=== PATIENT | female | born 1965 | race Caucasian/White ===

== ENCOUNTER 2022-11-12 10:12 | Outpatient (OUT) | payer BC, SELFPAY ==
[2022-11-12 10:19] VITALS: PULSE 81; RESP 16; O2SAT 96
[2022-11-12] MEDS: ALBUTEROL SULFATE 2.5 MG/3 ML VIAL NEB IH (10:19)
--- NOTE | 2022-11-12 10:23 | MM_ITS ---
Patient: BRIANNA MADRID Exam Date: 11/12/2022 : 1965 Gender:F Ordering : DR Khris Rod D.O. Admission #: [id number] Family : Order #: [id number] CLICK HERE TO VIEW EXAM kRADIOLOGY REPORT PROCEDURE: MM TOMOSYNTHESIS SCREENING BI COMPARISON: MG MAMM SCREEN RAQUEL W CAD, 07/04/2020. MG MAMM SCREEN 3D RAQUEL CAD, 07/28/2021. INDICATIONS: Screening mammogram Z12.31 Calculator Name NCI Breast Cancer Risk Assessment Tool 5 Year Breast Cancer Risk 1.30% Lifetime Breast Cancer Risk 8.00% Personal Breast Cancer No Personal Ovarian Cancer No Treatments None Family Cancers None LOCATION: [facility] BREAST COMPOSITION: Extremely dense, which lowers the sensitivity of mammography. FINDINGS: DIAGNOSTIC CATEGORY 1--NEGATIVE. NO CHANGE FROM COMPARISON ASSESSMENT. Scattered benign-appearing lymph nodes are present. RIGHT BREAST: No significant suspicious finding. LEFT BREAST: No significant suspicious finding. RECOMMENDATIONS: ROUTINE MAMMOGRAM AND CLINICAL EVALUATION IN 12 MONTHS. PLEASE NOTE: A NORMAL MAMMOGRAM DOES NOT EXCLUDE THE POSSIBILITY OF BREAST CANCER. A CLINICALLY SUSPICIOUS PALPABLE LUMP SHOULD BE BIOPSIED. Dictated by: Dat Marquis MD on 11/12/2022 at 13:17 Approved by: Dat Marquis MD on 11/12/2022 at 13:18
--- NOTE | 2022-11-12 10:25 | XR_ITS ---
[address] [address] Patient Name: BRIANNA MADRID MRN: [id number] date: 1965 Sex: F Assigned Patient Location: [facility] Current Patient Location: [facility] Accession/Order Number: [id number] Exam Date: 11/12/2022 10:42 Report Date: 11/12/2022 11:15 At the request of: ARTI PRADO Procedure: XR chest 2V EXAM: XR chest 2V HISTORY: Mild persistent asthma w/o complication J45.30 COMPARISON: None. TECHNIQUE: PA and lateral views of the chest. FINDINGS: The cardiomediastinal silhouette is normal. No focal consolidation is identified. There is no pneumothorax. No pleural effusion is noted. The osseous structures are intact. IMPRESSION: No acute cardiopulmonary process. Electronically authenticated by: NAS MORRISON Date: 11/12/2022 11:15
[2022-11-12 10:36] LABS: Basophils Absolute Auto 0.1 10^3/uL (0.0-0.1); Basophils Percent Auto 1.1 % (0.2-2.0); Eosinophils Absolute Auto 0.7 10^3/uL (0.0-0.7); Eosinophils Percent Auto 7.6 % (0.9-7.0); Hematocrit 44.7 % (36.0-48.0); Hemoglobin 15.1 g/dL (12.0-16.0); Immature Granulocytes Abs Auto 0.09 10^3/uL (0.00-0.03); Lymphocytes Absolute Auto 2.1 10^3/uL (1.2-3.8); Lymphocytes Percent Auto 23.4 % (20.5-60.0); Mean Corpuscular HGB Conc 33.8 g/dL (29.9-35.2); Mean Corpuscular Hemoglobin 32.3 pg (26.7-34.0); Mean Corpuscular Volume 95.5 fL (81.0-99.0); Monocytes Absolute Auto 0.5 10^3/uL (0.3-0.8); Monocytes Percent Auto 5.2 % (1.7-12.0); Neutrophils Absolute Auto 5.5 10^3/uL (1.4-6.5); Neutrophils Percent Auto 61.7 % (43.0-75.0); Platelet Count 256 10^3/uL (150-450); Red Blood Count 4.68 10^6/uL (4.20-5.40); Red Cell Distribution Width 12.2 % (11.0-15.0); White Blood Count 8.9 10^3/uL (4.0-11.0)
--- NOTE | 2022-11-12 10:57 | RT_ITS ---
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 The MVV is reduced. The increased airway resistance and decreased specific conductance indicate a central airway disease. The TLC, FRC and RV are increased indicating overinflation. Following administration of bronchodilators, there is an excellent response. The diffusing capacity is normal. Maldistribution of ventilation is indicated by the difference between the alveolar volume and the total lung capacity. Spirometry: FVC normal 99% FEV1 decreased 57% FEV1/FVC decreased 45 (actual) FEF 25-75 decreased 25% MVV decreased 48% Volumes: TLC increased 126% RV/TLC increased 128% Diffusion: Normal 89% Impression: Findings consistent with moderate obstructive airway disease with significant response to bronchodilators. Elevated TLC and RV/TLC consistent with hyperinflation. Normal diffusion capacity Electronically Signed On 11-13-2022 7:21:02 EDT by ARTI PRADO
[2022-11-12 11:45] LABS: Alanine Aminotransferase 25 U/L (14-59); Albumin Level 3.9 g/dL (3.4-5.0); Alkaline Phosphatase 110 U/L (46-116); Anion Gap 17.2; Aspartate Amino Transferase 26 U/L (15-37); BUN Creatinine Ratio 10.3; Bilirubin Total 0.4 mg/dL (0.2-1.0); Calcium 8.8 mg/dL (8.5-10.1); Carbon Dioxide 23.7 mmol/L (21.0-32.0); Chloride 102 mmol/L (98-107); Chol HDL Ratio 1.8; Cholesterol 227 mg/dL (<=200); Estimated GFR (African America >60 (>=60); Estimated GFR (Non-African Ame >60 (>=60); Globulin 3.8 g/dL; Glucose 77 mg/dL (74-106); HDL Cholesterol 123 mg/dL (40-60); Potassium 3.9 mmol/L (3.5-5.1); Sodium 139 mmol/L (136-145); Thyroid Stimulating Hormone 1.218 uIU/mL (0.358-3.740); Total Protein 7.7 g/dL (6.4-8.2); Triglycerides 67 mg/dL (<=150); VLDL CHOLESTEROL 13.4 mg/dL
[2022-11-12 13:16] LABS: Estimated Average Glucose 77 mg/dL; Glycohemoglobin A1C 4.3 % (4.5-6.2)
== END 2022-11-12 10:13 | disposition home or self-care (01) ==
LOC: RAD 10:12
PROVIDERS: PCP Internal Medicine; Visit Provider Internal Medicine
DX: Z00.00 Encounter for general adult medical examination without abnormal findings (principal); Z12.31 Encounter for screening mammogram for malignant neoplasm of breast; J45.30 Mild persistent asthma, uncomplicated
CPT/HCPCS: 36415; 71046; 77063; 77067; 80053; 80061; 83036; 84443; 85025; 94060; 94726; 94729

== ENCOUNTER 2023-03-26 14:29 | Outpatient (OUT) | payer BC, SELFPAY ==
--- NOTE | 2023-03-26 14:32 | CT_ITS ---
[address] [address] Patient Name: BRIANNA MADRID MRN: [id number] date: 1965 Sex: F Assigned Patient Location: CT Current Patient Location: CT Accession/Order Number: [id number] Exam Date: 03/26/2023 14:43 Report Date: 03/27/2023 07:25 At the request of: WHITNEY FOREMAN Procedure: CT chest wo con EXAMINATION: CT chest wo con HISTORY: Dyspnea On Exertion R06.09 COMPARISON: No relevant comparison available. TECHNIQUE: Multi-planar CT images were obtained without and/or with IV contrast as indicated by examination type. Axial, Coronal, and Sagittal images. Dose reduction techniques were achieved by using automated exposure control and/or adjustment of mA and/or kV according to patient size and/or use of iterative reconstruction technique. FINDINGS: LUNGS: Mild-moderate emphysematous changes predominantly involving the upper lung regions. No acute infiltrates or suspicious nodules. PLEURA: No mass, effusion, or pneumothorax. VASCULATURE: No abnormality. MANISHA: No mass or adenopathy. MEDIASTINUM: No mass or adenopathy. CARDIAC: No enlargement, pericardial thickening, or significant calcification. AORTA: No aneurysm or dissection. CHEST WALL: No mass or axillary adenopathy. BONES: No bone lesion or fracture. LIMITED ABDOMEN: Calcification within right hepatic dome, likely a benign granuloma. Limited images of the upper abdomen. OTHER: Negative. CT/CT chest wo con IMPRESSION: 1. No acute cardiopulmonary process. 2. Mild-moderate emphysematous changes. Electronically authenticated by: VALENCIA COREY Date: 03/27/2023 07:25
== END 2023-03-26 14:30 | disposition home or self-care (01) ==
LOC: CT 14:29
PROVIDERS: PCP Internal Medicine; Visit Provider Internal Medicine
DX: R06.09 Other forms of dyspnea (principal); R05.9 Cough, unspecified
CPT/HCPCS: 71250

== ENCOUNTER 2023-11-19 15:04 | Outpatient (OUT) | payer BC, SELFPAY ==
--- NOTE | 2023-11-19 15:25 | MM_ITS ---
Patient Name: BRIANNA MADRID MR#: [id number] : 1965 Exam Date: 11/19/2023 Ordering Doctor: DR Khris Rod D.O. RADIOLOGY REPORT PROCEDURE: MM TOMOSYNTHESIS SCREENING BI COMPARISON: MM TOMOSYNTHESIS SCREENING BI, 11/12/2022. MG MAMM SCREEN 3D RAQUEL CAD, 07/28/2021. MG MAMM SCREEN RAQUEL W CAD, 07/04/2020. MG MAMM RAQUEL SCRN W CAD DIG, 04/03/2013. INDICATIONS: Screening Calculator Name NCI Breast Cancer Risk Assessment Tool 5 Year Breast Cancer Risk 2.40% Lifetime Breast Cancer Risk 13.40% Personal Breast Cancer No Personal Ovarian Cancer No Treatments None Family Cancers Mother with breast cancer at age 70. LOCATION: [facility] BREAST COMPOSITION: The breasts are extremely dense, which lowers the sensitivity of mammography. FINDINGS: DIAGNOSTIC CATEGORY 1--NEGATIVE. RIGHT BREAST: No significant suspicious finding. No significant change has occurred. LEFT BREAST: No significant suspicious finding. No significant change has occurred. RECOMMENDATIONS: ROUTINE MAMMOGRAM AND CLINICAL EVALUATION IN 12 MONTHS. PLEASE NOTE: A NORMAL MAMMOGRAM DOES NOT EXCLUDE THE POSSIBILITY OF BREAST CANCER. A CLINICALLY SUSPICIOUS PALPABLE LUMP SHOULD BE BIOPSIED. Dictated by: Sandor Salazar M.D. on 11/20/2023 at 07:21 Approved by: Sandor Salazar M.D. on 11/20/2023 at 07:23
--- OUTSIDE RECORDS SUMMARY | 2023-11-19 15:28 | XMS_ITS ---
Patient Summarization (C-CDA 2.1 CCD) Created on: November 19, 2023 BRIANNA MADRID : 1965 Sex: Female Author Organization Sample organization Care Team Providers Care Residential Coordinator Name Role Phone DR KHRIS ROD Primary Care Unavailable BALL, DR CHI Admitting Unavailable BALL, DR CHI Attending Unavailable BALL, DR CHI Primary Care Unavailable SAMIR THOMAS Attending Unavailable ROSS, SAMIR EPI Consulting Unavailable ROSS, SAMIR EPI Admitting Unavailable ROSS, SAMIR EPI Attending Unavailable ROSS, SAMIR EPI Consulting Unavailable ROSS, SAMIR EPI Admitting Unavailable BALL, DR CHI Primary Care Unavailable BALL, DR CHI Primary Care Unavailable BALL, DR CHI Admitting Unavailable BALL, DR CHI Attending Unavailable BALL, DR CHI Consulting Unavailable ZIEDWIN, DR SANDOR [facility] Unavailable NO FAMILY, PHYSICIAN Primary Care Provider Unava ilable Community, Outreach Attending Provider Community, Outreach Attending Unavailable Community, Outreach Admitting Unavailable NO FAMILY, PHYSICIAN Primary Care Unavailable Khris Rod Unavailable Forest Leung Attending Unavailable SERENE TIDWELL Attending Unavailable Allergies Allergy Classification Reported Allergen(s) Allergy Type Date of Onset Reaction(s) Facility (2 sources) patient allergy list reviewed by nurse or physicia Propensity to adverse reactions 8 Comment:Done [facility] Other (2 sources) Allergies Reconciled Propensity to adverse reactions Unknown [facility] Other Encounters Encounter Date Encounter Type Care Provider Facility Start: 07-15-2023 End: 07-15-2023 ambulatory Khris Rod Other [facility] Other Start: 07-15-2023 [facility] Start: 04-02-2023 End: 04-02-2023 ambulatory SERENE TIDWELL Not Available Start: 03-12-2023 End: 03-12-2023 ambulatory Khris Rod Other [facility] Other Start: 03-12-2023 Telephone encounter Khris Rod [facility] Start: 11-13-2022 End: 11-13-2022 ambulatory Khris Rod Other [facility] Other Start: 11-13-2022 Telephone encounter Khris Rod [facility] Start: 11-01-2022 End: 11-01-2022 ambulatory Khris Rod Other [facility] Other Start: 11-01-2022 Telephone encounter Khris Rod [facility] Start: 10-24-2022 End: 10-24-2022 ambulatory Khris Rod Other [facility] Other Start: 10-24-2022 Encounter for genera l adult medical examination without abnormal findings Khris Marcel [facility] Start: 10-24-2022 Periodic preventive med est patient 40-64yrs Khris Rod [facility] Start: 08-03-2022 Emergency department patient visit [facility] Facility:[facility] Start: 08-03-2022 End: 08-03-2022 ambulatory Khris Rod Other [facility] Other Start: 08-03-2022 Telephone encounter Khris Rod [facility] Start: 08-02-2022 End: 08-02-2022 ambulatory Khris Rod Other [facility] Other Start: 08-02-2022 Office outpatient vi sit 15 minutes Khris Ball [facility] Start: 07-16-2022 End: 07-16-2022 ambulatory Khris Rod Other [facility] Other Start: 07-16-2022 Office outpatient vi sit 15 minutes Khris Ball [facility] Start: 02-12-2022 Gynecological examination normal Khris Rod Other [facility] Other Start: 10-31-[address] KHRIS ROD Facili ty:[facility] Start: 10-28-2021 End: 10-28-2021 ambulatory Outreach Community Facility:[facility] Start: 10-28-2021 End: 10-28-2021 Departed Referred PHYSICIAN YANIRA MATA [facility] Start: 07-31-2021 Encounter for genera l adult medical examination without abnormal findings DR KHRIS ROD [facility] Start: 07-28-2021 End: 07-29-[address] KHRIS ROD Facility:[facility] Start: 07-28-2021 End: 07-29-2021 Encounter for general adult medical examination without abnormal findings DR KHRIS ROD Facility:[facility] Start: 07-04-2021 Adult health examination Orion tristen Marcel Other [facility] Other Start: 04-18-2021 End: 04-19-[address] KHRIS ROD Facility:[facility] Start: 03-15-2021 End: 03-16-2021 ambulatory SAMIR THOMAS Facility:[facility] Medications Current Medications Medication Drug Class(es) Dates Sig (Normalized) Sig (Original) [id number] 200 actuat albuterol 0.09 mg/actuat metered dose inhaler (3 sources) beta2-Adrenergic Agonist Start: 08-02-2022 take 2 puff(s) by inhalation every four hours as needed for cough Albuterol Sulfate HFA 108 (90 Base) MCG/ACT 2 puffs Inhalation every 4 hrs as needed for cough and SOB for 30 days Jul, Active amoxicillin 875 mg / clavulanate 125 mg oral tablet (3 sources) Penicillin-class Antibacterial Start: 08-02-2022 take 1 tablet by mouth every twelve hours Amoxicillin-Pot Clavulanate 875-125 MG 1 tablet Orally every 12 hrs for 7 days Jul, Active 60 actuat budesonide 0.16 mg/actuat / formoterol fumarate 0.0045 mg/actuat metered dose inhaler (7 sources) Corticosteroid, beta2-Adrenergic Agonist take 2 puff(s) by inhalation twice daily Symbicort 160-4.5 MCG/ACT 2 puffs Inhalation Twice a day Active take 2 puff(s) by inhalation twi ce daily Symbicort 160-4.5 MCG/ACT 2 puffs Inhalation Twice a day Active codeine phosphate 2 mg/ml / guaiFENesin 20 mg/ml oral solution (3 sources) Opioid Agonist Start: 07-16-2022 take 10 mL by mouth every six hours as needed for cough guaiFENesin-Codeine 100-10 MG/5ML 10 mL as needed Orally every 6 hours as needed for cough for 7 days Jun, Active doxycycline hyclate 100 mg oral capsule (3 sources) Tetracycline-cla ss Drug Start: 07-16-2022 take 1 capsule by mouth twice daily Doxycycline Hyclate 100 MG 1 capsule Orally twice daily for 7 days Jun, Active Escitalopram (3 sources) Serotonin Reuptake Inhibitor Escitalopram Oxalate Active Famotidine (3 sources) Histamine-2 Receptor Antagonist Pepcid Active FLUoxetine 20 mg oral tablet (7 sources) Serotonin Reuptake Inhibitor FLUoxetine HCl 20 MG TAKE 1 TABLET BY MOUTH EVERY MORNING Orally Once a day for 90 days Active 200 actuat levalbuterol 0.045 mg/actuat metered dose inhaler (7 sources) beta2-Adrenergic Agonist Start: 10-04-2022 take 2 puff(s) by inhalation every six hours as needed for cough Xopenex HFA 45 MCG/ACT 2 puffs Inhalation every 6 hrs as needed for cough, SOB September, Active montelukast 10 mg oral tablet (5 sources) Leukotriene Receptor Antagonist Start: 11-13-2022 Singulair 10 MG 1 tablet Orally at night for 30 days Oct, Active predniSONE 20 mg oral tablet (3 sources) Start: 07-16-2022 predniSONE 20 MG 2 Orally Once a day w/ food for 5 days Jun, Active Completed/Discontinued Medications Medication Drug Class(es) Dates Sig (Normalized) Sig (Original) ALPRAZolam (10 sources) Benzodiazepine ALPRAZolam Not-T aking/PRN ALPRAZolam Not-T aking fluticasone / vilanterol (10 sources) Corticosteroid, beta2-Adrenergic Agonist Breo Ellipta No t-Taking/PRN Breo Ellipta Not -Taking methylPREDNISolone (10 sources) Corticosteroid methylPREDNISolo ne Not-Taking/PRN methylPREDNISolo ne Not-Taking traMADol (10 sources) Opioid Agonist traMADol HCl Not -Taking/PRN traMADol HCl Not -Taking Payers Date Payer Category Payer [facility] [id number] 2019 Unknown [id number] 1965 Unknown [id number] [id number] 1965 Unknown [id number] [id number] [id number] 1965 Unknown [id number] 1959 Self-pay Unknown [id number] [id number] [id number] Unknown [id number] [id number] [id number] Problems Active Problems Problem Classification Problem Date Documented Da te Episodic/Chronic Acute bronchitis (3 sources) Acute bronchitis due to other specified organisms; Translations: [Acute bronchitis] Episodic Anxiety disorders (14 sources) Generalized anxiety disorder; Translations: [Generalized anxiety disorder] Chronic Asthma (17 sources) Uncomplicated mild persistent asthma; Translations: [Mild persistent asthma, uncomplicated] Onset: 7 Resolved: 2 Chronic Attention-deficit, conduct, and disruptive behavior disorders (2 sources) Attention deficit hyperactivity disorder, predominantly inattentive type; Translations: [Attention or concentration deficit] Onset: 8 Chronic Cardiac dysrhythmias (5 sources) Palpitations; Translations: [Palpitations] Onset: 2 Episodic Chronic obstructive pulmonary disease and bronchiectasis (20 sources) Simple chronic bronchitis; Translations: [Simple chronic bronchitis] Chronic Esophageal disorders (15 sources) Gastroesophageal reflux disease; Translations: [Gastro-esophageal reflux disease without esophagitis] Onset: 5 Chronic Headache; including migraine (2 sources) Chronic migraine without aura, non-refractory; Translations: [Migraine without aura, not intractable, without status migrainosus] Chronic Menopausal disorders (2 sources) Menopause present; Translations: [Menopausal and female climacteric states] Chronic Menstrual disorders (2 sources) Irregular periods; Translations: [Irregular menstruation, unspecified] Chronic Miscellaneous mental health disorders (2 sources) Primary insomnia; Translations: [Primary insomnia] Chronic Other aftercare (2 sources) Long-term current use of inhaled steroid; Translations: [correction (current) use of inhaled steroids] Episodic Other connective tissue disease (2 sources) Plantar fascial fibromatosis; Translations: [Plantar fascial fibromatosis] Episodic Other gastrointestinal disorders (10 sources) Dysphagia; Translations: [Dysphagia, unspecified] Episodic Other upper respiratory disease (7 sources) Allergic rhinitis due to pollen; Translations: [Allergic rhinitis due to pollen] Chronic Other upper respiratory disease (1 source) Allergic rhinitis due to pollen Chronic Other upper respiratory disease (2 sources) Allergic rhinitis; Translations: [Allergic rhinitis, unspecified] Onset: 5 Chronic Other upper respiratory disease (2 sources) Seasonal allergic rhinitis; Translations: [Other seasonal allergic rhinitis] Chronic Residual codes; unclassified (2 sources) Normal body mass index; Translations: [Body mass index (BMI) 21.0-21.9, adult] Episodic Screening and history of mental health and substance abuse codes (4 sources) Nicotine dependence; Translations: [Personal history of nicotine dependence] Onset: 5 Episodic Substance-related disorders (12 sources) Tobacco dependence in remission; Translations: [Nicotine dependence, cigarettes, in remission] Onset: 6 Chronic Viral infection (2 sources) Viral disease; Translations: [Viral infection, unspecified] Episodic Past or Other Problems Problem Classification Problem Date Documented Date Episodic/Chronic Abdominal pain (2 sources) Epigastric pain; Translations: [Epigastric pain] Onset: 7 Episodic Genitourinary symptoms and ill-defined conditions (2 sources) Polyuria; Translations: [Other polyuria] Resolved: 2 Episodic Headache; including migraine (2 sources) Headache; Translations: [Headache] Onset: 8 Episodic Immunizations and screening for infectious disease (4 sources) Encounter for immunization; Translations: [ENCOUNTER FOR IMMUNIZATION] Onset: 1 Episodic Malaise and fatigue (2 sources) Malaise and fatigue; Translations: [Other malaise and fatigue] Onset: 7 Episodic Nausea and vomiting (2 sources) Nausea; Translations: [Nausea] Onset: 7 Episodic Other gastrointestinal disorders (2 sources) Pharyngeal dysphagia; Translations: [Dysphagia, pharyngoesophageal phase] Onset: 5 Episodic Other gastrointestinal disorders (2 sources) Diarrhea; Translations: [Diarrhea] Onset: 7 Episodic Other inflammatory condition of skin (2 sources) Pruritus ani; Translations: [Pruritus ani] Onset: 5 Episodic Other liver diseases (2 sources) Elevated levels of transaminase & lactic acid dehydrogenase; Translations: [Nonspecific elevation of levels of transaminase or lactic acid dehydrogenase (LDH)] Onset: 8 Episodic Other lower respiratory disease (2 sources) Cough; Translations: [Cough, unspecified] Onset: 5 Episodic Other lower respiratory disease (2 sources) Chronic cough; Translations: [Chronic cough] Resolved: 2 Episodic Other lower respiratory disease (2 sources) Dyspnea; Translations: [Other forms of dyspnea] Resolved: 2 Episodic Other nervous system disorders (2 sources) Paresthesia; Translations: [Paresthesia of skin] Onset: 7 Episodic Other screening for suspected conditions (not mental disorders or infectious disease) (6 sources) Encounter for screening mammogram for malignant neoplasm of breast; Translations: [Abnormal results function studies of central nervous system] Onset: 5 Episodic Other upper respiratory infections (2 sources) Acute sinusitis; Translations: [Acute sinusitis, unspecified] Onset: 4 Episodic Otitis media and related conditions (6 sources) Eustachian tube salpingitis; Translations: [Unspecified Eustachian salpingitis, bilateral] Onset: 4 Episodic Residual codes; unclassified (2 sources) Tobacco user; Translations: [Nondependent tobacco use disorder] Onset: 5 Episodic Syncope (2 sources) Syncope and collapse; Translations: [Syncope and collapse] Onset: 8 Episodic Unclassified (2 sources) Intestinal infection due to enterotoxigenic E. coli; Translations: [Intestinal infection due to enterotoxigenic E. coli] Onset: 7 Unclassified (2 sources) Exposure to acute respiratory syndrome coronavirus 2; Translations: [Contact with and (suspected) exposure to COVID-19] Resolved: 2 Unclassified (2 sources) Unspecified Shiga toxin-producing Escherichia coli [E. coli] (STEC) infection in conditions classified elsewhere and of unspecified site; Translations: [Unspecified Shiga toxin-producing Escherichia coli [E. coli] (STEC) infection in conditions classified elsewhere and of unspecified site] Onset: 7 Procedures Date Procedure Procedure Detail Performing Clinician Start: 02-03-2015 Screening mammography B vickey Rod Other Start: 12-16-2013 General examination of patient Khris Rod Other History and physical examination, sports participation Khris Rod Other Screening for malign ant neoplasm of breast Khris Rod Other Screening for malign ant neoplasm of colon Khris Rod Other Results Test Name Value Interpretation Reference Range Facility [facility] echo screening 022 [facility] echo screening [facility] [place] [address] Echocardiogram Signed Patient: Brianna Rowland MR#: [id number] 6 : 1965 Acct:[id number] Age/Sex: 55 / F ADM Date: 10/28/21 Loc: Room: Type: DEP REF Attending Dr: Aleyda Kincaid Ordering Provider: ALEYDA KINCAID Date of Service: 10/28/21/ Accession #: Copies to: ALEYDA KINCAID MD Reason For Study: SCREENING Interpretation Summary The left ventricular size, thickness and function are normal Ejection Fraction = 60-65%. Procedure/Quality: A limited two-dimensional transthoracic echocardiogram was performed as part of a Community Outreach Screening. Left Ventricle: The left ventricular size, thickness and function are normal. Ejection Fraction = 60-65%. Left Atrium: The left atrium appears normal in size. Right Atrium: The right atrium appears normal in size. Right Ventricle: The right ventricular size, thickness and function are normal. Measurements with Normals IVSd: 0.90 cm (0.7-1.1 cm)LVIDd: 4.2 cm (3.7-5.4 cm) LVPWd: 0.80 cm (0.7-1.1 cm)LVIDs: 2.4 cm (2.3-3.6 cm) LA dimension: 3.1 cm(2.3-4.0 cm)Ao root diam: 3.3 cm(2.0-3.6 cm) Doppler with Normals MMode/2D Measurements Calculations FS: 42.1 % Ao root area: LVLd ap4: 7.1 cm SV(MOD-sp4): EDV(Teich): 8.5 cm2 EDV(MOD-sp4): 45.4 ml 78.6 ml 71.2 ml ESV(Teich): LVLs ap4: 5.4 cm 20.8 ml ESV(MOD-sp4): EF(Teich): 73.5 % 25.8 ml EF(MOD-sp4): 63.8 % Transcribed By: SCV Performed At: 10/28/21 0713 Signed By: Sherman Barrett MD 10/30/21 1003 [facility] CBC AUTO DIFFon 07-28-2021 BASO # 0.1 103/ul Normal 0.0-0.1 [facility] Comment on above: Performed By: #### C BC #### [facility] [address] [place] [address] Dr. Breezy Carranza Basophils/100 WBC (Bld) 0.7 % Normal 0.2-2.0 [facility] Comment on above: Performed By: #### C BC #### [facility] [address] [place] [address] Dr. Breezy Carranza EO # 0.3 103/ul Normal 0.0-0.7 [facility] Comment on above: Performed By: #### C BC #### [facility] [address] [place] [address] Dr. Breezy Carranza Eosinophils/100 WBC (Bld) 3.1 % Normal 0.9-7.0 [facility] Comment on above: Performed By: #### C BC #### [facility] [address] [place] [address] Dr. Breezy Carranza Erythrocyte distribution width (RBC) [Ratio] 13.0 % Normal 11.0-15.0 [facility] Comment on above: Performed By: #### C BC #### [facility] [address] [place] [address] Dr. Breezy Carranza Hematocrit (Bld) [Volume fraction] 39.9 % Normal 36.0-48.0 [facility] Comment on above: Performed By: #### C BC #### [facility] [address] [place] [address] Dr. Breezy Carranza Hemoglobin (Bld) [Mass/Vol] 13.1 g/dL Normal 12.0-16.0 [facility] Comment on above: Performed By: #### C BC #### [facility] [address] [place] [address] Dr. Breezy Carranza IG # 0.08 10e3/ul Critically high 0.00-0.03 [facility] Comment on above: Performed By: #### C BC #### [facility] [address] [place] [address] Dr. Breezy Carranza IG % 0.9 % Critically high 0.0-0.5 [facility] Comment on above: Performed By: #### C BC #### [facility] [address] [place] [address] Dr. Breezy Carranza LYMPH # 1.8 103/ul Normal 1.2-3.8 [facility] Comment on above: Performed By: #### C BC #### [facility] [address] [place] [address] Dr. Breezy Carranza Lymphocytes/100 WBC (Bld) 20.7 % Normal 20.5-60.0 [facility] Comment on above: Performed By: #### C BC #### [facility] [address] [place] [address] Dr. Breezy Carranza MANUAL DIFF REQ NO Normal [facility] Comment on above: Performed By: #### C BC #### [facility] [address] [place] [address] Dr. Breezy Carranza MCH (RBC) [Entitic mass] 33.1 pg Normal 26.7-34.0 [facility] Comment on above: Performed By: #### C BC #### [facility] [address] [place] [address] Dr. Breezy Carranza MCHC (RBC) [Mass/Vol] 32.8 g/dL Normal 29.9-35.2 [facility] Comment on above: Performed By: #### C BC #### [facility] [address] [place] [address] Dr. Breezy Carranza MCV (RBC) [Entitic vol] 100.8 fL Critically high 81.0-99.0 [facility] Comment on above: Performed By: #### C BC #### [facility] [address] [place] [address] Dr. Breezy Carranza MONO # 0.6 103/ul Normal 0.3-0.8 [facility] Comment on above: Performed By: #### C BC #### [facility] [address] [place] [address] Dr. Breezy Carranza Monocytes/100 WBC (Bld) 7.2 % Normal 1.7-12.0 [facility] Comment on above: Performed By: #### C BC #### [facility] [address] [place] [address] Dr. Breezy Carranza NEUT # 5.7 103/ul Normal 1.4-6.5 [facility] Comment on above: Performed By: #### C BC #### [facility] [address] [place] [address] Dr. Breezy Carranza Neutrophils/100 WBC (Bld) 67.4 % Normal 43.0-75.0 [facility] Comment on above: Performed By: #### C BC #### [facility] [address] [place] [address] Dr. Breezy Carranza Platelet mean volume (Bld) [Entitic vol] 9.9 fL Normal 9.5-13.5 [facility] Comment on above: Performed By: #### C BC #### [facility] [address] [place] [address] Dr. Breezy Carranza PLT 204 103/ul Normal 150-450 [facility] Comment on above: Performed By: #### C BC #### [facility] [address] [address] [address] Breezy Carranza RBC 3.96 106/ul Critically low 4.20-5.40 [facility] Comment on above: Performed By: #### C BC #### [facility] [address] [address] [address] Breezy Carranza WBC 8.5 103/ul Normal 4.0-11.0 [facility] Comment on above: Performed By: #### C BC #### [facility] [address] [place] [address] Dr. Breezy Carranza GLYCOHEMOGLOBIN A1Con 2021 ADA RECOMMENDATION ADA THERAPEUTIC TARGET 6.0 - 7.0 ACTION SUGGESTED > 7.0 Normal [facility] Comment on above: Performed By: #### A 1C #### [facility] [address] [place] [address] Dr. Breezy Carranza Glucose [Mass/Vol] 82 mg/dL Normal [facility] Comment on above: Performed By: #### A 1C #### [facility] [address] [place] [address] Dr. Breezy Carranza HbA1c (Bld) [Mass fraction] 4.5 % Normal <=6.0 [facility] Comment on above: Performed By: #### A 1C #### [facility] [address] [place] [address] Dr. Breezy Carranza LIPID PROFILEon 07-28-2021 CHOL-HDL RATIO NORM SEE BELOW Normal [facility] Comment on above: Result Comment: 3.3 - 4.4 LOW RISK 4.4 - 7.1 AVERAGE RISK 7.1 - 11.0 MODERATE RISK >11.0 HIGH RISK Performed By: #### C MP, LIPID, TSH #### [facility] [address] [address] [address] Breezy Carranza Cholesterol [Mass/Vol] 249 mg/dL Critically high <=200 [facility] Comment on above: Performed By: #### C MP, LIPID, TSH #### [facility] [address] [address] [address] Breezy Carranza Cholesterol in HDL [Mass/Vol] 117 mg/dL Normal [facility] Comment on above: Performed By: #### C MP, LIPID, TSH #### [facility] [address] [address] [address] Breezy Carranza Cholesterol in LDL [Mass/Vol] 123.2 mg/dL Normal [facility] Comment on above: Performed By: #### C MP, LIPID, TSH #### [facility] [address] [address] [address] Breezy Carranza Cholesterol.total/Cho lesterol in HDL [Mass ratio] 2.1 {ratio} Normal [facility] Comment on above: Performed By: #### C MP, LIPID, TSH #### [facility] [address] [address] [address] Breezy Carranza HDL NORMAL > or = 60 mg/dl - LOW CARDIOVASCULAR RISK <40 mg/dl - HIGH CARDIOVASCULAR RISK Normal [facility] Comment on above: Performed By: #### C MP, LIPID, TSH #### [facility] [address] [address] [address] Breezy Carranza LDL CALC NORMAL SEE BELOW Normal [facility] Comment on above: Result Comment: <100 mg/dl OPTIMAL 100 - 129 mg/dl NEAR OR ABOVE OPTIMAL 130 - 159 mg/dl BORDERLINE HIGH 160 - 189 mg/dl HIGH >190 mg/dl VERY HIGH Performed By: #### C MP, LIPID, TSH #### [facility] [address] [address] [address] Breezy Carranza Triglyceride [Mass/Vol] 44 mg/dL Normal <=150 [facility] Comment on above: Performed By: #### C MP, LIPID, TSH #### [facility] [address] [address] [address] Breezy Carranza VLDL CALC 8.8 mg/dL Normal [facility] Comment on above: Performed By: #### C MP, LIPID, TSH #### [facility] [address] [address] [address] Breezy Carranza MG MAMM SCREEN 3D RAQUEL CADon 07-28-2021 MG MAMM SCREEN 3D RAQUEL CAD Patient: BRIANNA ROWLAND Exam Date: 07/28/2021 : 1965 Gender:F Ordering : DR KHRIS ROD D.O. Admission #: [id number] Family : Order #: [id number] CLICK HERE TO VIEW EXAM RADIOLOGY REPORT PROCEDURE: MAMMOGRAM SCREENING 3D BILATERAL CAD COMPARISON: MG MAMM SCREEN RAQUEL W CAD, 07/04/2020. MG MAMM SCREEN RAQUEL W CAD, 05/06/2019. INDICATIONS: Screening mammography Calculator Name NCI Breast Cancer Risk Assessment Tool 5 Year Breast Cancer Risk 1.20% Lifetime Breast Cancer Risk 8.30% Personal Breast Cancer No Personal Ovarian Cancer No Treatments None Family Cancers None LOCATION: [facility] BREAST COMPOSITION: Extremely dense, which lowers the sensitivity of mammography. FINDINGS: DIAGNOSTIC CATEGORY 1--NEGATIVE. RIGHT BREAST: No significant suspicious finding. No significant change has occurred. LEFT BREAST: No significant suspicious finding. No significant change has occurred. RECOMMENDATIONS: ROUTINE MAMMOGRAM AND CLINICAL EVALUATION IN 12 MONTHS. PLEASE NOTE: A NORMAL MAMMOGRAM DOES NOT EXCLUDE THE POSSIBILITY OF BREAST CANCER. A CLINICALLY SUSPICIOUS PALPABLE LUMP SHOULD BE BIOPSIED. Dictated by: Sandor Salazar M.D. on 07/28/2021 at 13:24 Approved by: Sandor Salazar M.D. on 07/28/2021 at 13:27 Normal [facility] PROF 14(COMP METB)on 022 Albumin [Mass/Vol] 3.8 g/dL Normal 3.5-5.0 [facility] Comment on above: Performed By: #### C MP, LIPID, TSH #### [facility] [address] [address] [address] Breezy Carranza Albumin/Globulin [Mass ratio] 1.1 {ratio} Normal [facility] Comment on above: Performed By: #### C MP, LIPID, TSH #### [facility] [address] [address] [address] Breezy Carranza ALP [Catalytic activity/Vol] 96 U/L Normal 38-126 [facility] Comment on above: Performed By: #### C MP, LIPID, TSH #### [facility] [address] [place] [address] Dr. Breezy Carranza ALT [Catalytic activity/Vol] 45 U/L Normal 9-52 [facility] Comment on above: Performed By: #### C MP, LIPID, TSH #### [facility] [address] [place] [address] Dr. Breezy Carranza Anion gap [Moles/Vol] 15.6 mmol/L Normal [facility] Comment on above: Performed By: #### C MP, LIPID, TSH #### [facility] [address] [place] [address] Dr. Breezy Carranza AST [Catalytic activity/Vol] 27 U/L Normal 14-36 [facility] Comment on above: Performed By: #### C MP, LIPID, TSH #### [facility] [address] [place] [address] Dr. Breezy Carranza Bilirubin [Mass/Vol] 0.5 mg/dL Normal 0.2-1.3 [facility] Comment on above: Performed By: #### C MP, LIPID, TSH #### [facility] [address] [place] [address] Dr. Breezy Carranza Calcium [Mass/Vol] 8.6 mg/dL Normal 8.4-10.2 [facility] Comment on above: Performed By: #### C MP, LIPID, TSH #### [facility] [address] [place] [address] Dr. Breezy Carranza Chloride [Moles/Vol] 100 mmol/L Normal 98-107 [facility] Comment on above: Performed By: #### C MP, LIPID, TSH #### [facility] [address] [place] [address] Dr. Breezy Carranza CO2 [Moles/Vol] 25.6 mmol/L Normal 22.0-30.0 [facility] Comment on above: Performed By: #### C MP, LIPID, TSH #### [facility] [address] [address] [address] Breezy Carranza Creatinine [Mass/Vol] 0.66 mg/dL Normal 0.52-1.04 [facility] Comment on above: Performed By: #### C MP, LIPID, TSH #### [facility] [address] [address] [address] Breezy Carranza EGFR-AF GUYANESE >60 Normal >=60 [facility] Comment on above: Performed By: #### C MP, LIPID, TSH #### [facility] [address] [address] [address] Breezy Carranza EGFR-NON AF GUYANESE >60 Normal >=60 [facility] Comment on above: Performed By: #### C MP, LIPID, TSH #### [facility] [address] [address] [address] Breezy Carranza Globulin (S) [Mass/Vol] 3.5 g/dL Normal [facility] Comment on above: Performed By: #### C MP, LIPID, TSH #### [facility] [address] [address] [address] Breezy Carranza Glucose [Mass/Vol] 72 mg/dL Critically low 74-106 [facility] Comment on above: Performed By: #### C MP, LIPID, TSH #### [facility] [address] [address] [address] Breezy Carranza Potassium [Moles/Vol] 4.2 mmol/L Normal 3.4-5.0 [facility] Comment on above: Performed By: #### C MP, LIPID, TSH #### [facility] [address] [address] [address] Breezy Carranza Protein [Mass/Vol] 7.3 g/dL Normal 6.1-8.2 [facility] Comment on above: Performed By: #### C MP, LIPID, TSH #### [facility] [address] [address] [address] Breezy Carranza Sodium [Moles/Vol] 137 mmol/L Normal 137-145 [facility] Comment on above: Performed By: #### C MP, LIPID, TSH #### [facility] [address] [address] [address] Breezy Carranza Urea nitrogen [Mass/Vol] 9.0 mg/dL Normal 7.0-17.0 [facility] Comment on above: Performed By: #### C MP, LIPID, TSH #### [facility] [address] [address] [address] Breezy Carranza Urea nitrogen/Creatinine [Mass ratio] 13.6 mg/mg Normal [facility] Comment on above: Performed By: #### C MP, LIPID, TSH #### [facility] [address] [address] [address] Breezy Carranza TSHon 07-28-2021 TSH 1.967 uIU/mL Normal 0.470-4.[address] [facility] Comment on above: Performed By: #### C MP, LIPID, TSH #### [facility] [address] [address] [address] Breezy Carranza TSH RANGE SEE BELOW Normal [facility] Comment on above: Result Comment: <0.3 4 UIU/ml HYPERTHYROID 0.34-5.60 UIU/ml EUTHYROID >5.60 UIU/ml HYPOTHYROID Performed By: #### C MP, LIPID, TSH #### [facility] [address] [address] [address] Breezy Carranza Social History Date Type Detail Facility Start: 1965 Sex Assigned At Female F [facility] Tobacco smoking status NYIS Unknown if ever smoked [facility] Work Phone: Sex Assigned At Sex Assigned At [facility] Other Vital Signs Date Time Vital Sign Value Performing Clinician Facility 10-24-2022 14:30-0400 Body height 165.1 cm Khris Rod Other [facility] Other 10-24-2022 14:30-0400 Body mass index (BMI) [Ratio] 22.16 kg/m2 Khris Rod Other [facility] Other 10-24-2022 14:30-0400 Body weight 60.42 kg [employer] Other [facility] Other 10-24-2022 14:30-0400 Diastolic blood pressure 76 mm[Hg] [employer] Other [facility] Other 10-24-2022 14:30-0400 Respiratory rate 12 /min [employer] Other [facility] Other 10-24-2022 14:30-0400 Systolic blood pressure 117 mm[Hg] [employer] Other [facility] Other Clinical Notes 07-16-2022 to 03-12-2023 Note Date & Type Note Facility 03-12-2023 Evaluation note Encounter Date Diagnosis Assessment Notes Feb, ANGELINA (generalized anxiety disorder) (ICD-10 - F41.1) [facility] Other 06-27-2023 Evaluation note* Encounter Date Diagnosis Assessment Notes Treatment Notes Treatment Clinical Notes Oct, Mild persistent asthma without complication (ICD-10 - J45.30) [facility] Other 06-15-2023 Evaluation note* Encounter Date Diagnosis Assessment Notes Treatment Notes Treatment Clinical Notes Oct, Screening mammogram for breast cancer (ICD-10 - Z12.31) [facility] Other 06-07-2023 Evaluation note* Encounter Date Diagnosis Assessment Notes Treatment Notes Treatment Clinical Notes Oct, Wellness examination (ICD-10 - Z00.00) Healthy diet and exercise. Reviewed age-appropriate preventive testing recommended. Oct, ANGELINA (generalized anxiety disorder) (ICD-10 - F41.1) Healthy diet, exercise and keeping active. No change in medical therapy. Oct, Simple chronic bronchitis (ICD-10 - J41.0) Referral to Pulmonary for evaluation and treatment. Oct, Seasonal allergic rhinitis due to pollen (ICD-10 - J30.1) Yun, Flonase Referral to Desk Director to determine contribution of allergies to her respiratory complaints. Oct, Mild persistent asthma without complication (ICD-10 - J45.30) Continue LABA/ICS and AMERICO. Oct, Cigarette nicotine dependence in remission (ICD-10 - F17.211) Continue abstinence [facility] Other 03-17-2023 Evaluation note* Encounter Date Diagnosis Assessment Notes Treatment Notes Treatment Clinical Notes Jul, Chronic obstructive pulmonary disease with (acute) exacerbation (ICD-10 - J44.1) [facility] Other 03-16-2023 Evaluation note* Encounter Date Diagnosis Assessment Notes Treatment Notes Treatment Clinical Notes Jul, Acute bronchitis due to other specified organisms (ICD-10 - J20.8) Instructed to use Robitussin or Mucinex for cough, saline or Flonase NS for congestion, Tylenol for pain and fever. Jul, Chronic obstructive pulmonary disease with (acute) lower respiratory infection (ICD-10 - J44.0) Begin antibiotics. Jul, Chronic obstructive pulmonary disease with (acute) exacerbation (ICD-10 - J44.1) Increase use of AMERICO [facility] Other 02-27-2023 Evaluation note* Encounter Date Diagnosis Assessment Notes Treatment Notes Treatment Clinical Notes Jun, Simple chronic bronchitis (ICD-10 - J41.0) Mucinex as needed, push fluids, d/c Anoro Jun, Chronic obstructive pulmonary disease with (acute) lower respiratory infection (ICD-10 - J44.0) Instructed to use Robitussin or Mucinex for cough, saline or Flonase NS for congestion, Tylenol for pain and fever. Jun, Chronic obstructive pulmonary disease with (acute) exacerbation (ICD-10 - J44.1) Begin Prednisone 40mg qd x 5 days Jun, GERD (gastroesophageal reflux disease) (ICD-10 - K21.9) Diet instructions: Smaller portions, avoid eating and laying flat, avoid eating or drinking prior to bedtime. Weight loss. Jun, Other Healthy diet an d keep active. [facility] Other Evaluation noteNo assessment information available [facility] Work Phone: Evaluation noteNo Information[facility] Other History general Narrative - Reported* Type Description Date Medical History ANGELINA (generalized anxiety disorde r) Surgical History C SECTIONS X2 [facility] Other History general Narrative - Reported* Type Description Date Medical History ANGELINA (generalized anxiety disorde r) Surgical History C SECTIONS X2 Hospitalization History SEE SURGICAL HX [facility] Other Reason for referral (narrative)* Reason Referral for allergy testing. Diagnosis 1 Seasonal allergic rh initis due to pollen (J30.1) Diagnosis 2 Mild persistent asth ma without complication (J45.30) Referral Organization [facility] [employer] [facility] Referring Provider First Name Khris Referring Provider Last Name Marcel Referring Provider Specialty Internal Nh hiram Referred Organization Unknown Facility Referred Provider Martell Jiménez Referred Provider Specialty Allergy/Immu nology Referral Priority Routine General Notes Brianna suffers from l justina long breathing problems. By history, she has allergic rhinitis, possible asthma and COPD. She is experiencing dyspnea, wheezing, cough and breathlessness. I am referring Brianna for allergy testing to determine any role allergies have with her respiratory symptoms. Reason Referral for COPD Diagnosis 1 Simple chronic bronc hitis (J41.0) Diagnosis 2 Mild persistent asth ma without complication (J45.30) Diagnosis 3 Cigarette nicotine d ependence in remission (F17.211) Referral Organization [facility] [employer] [facility] Referring Provider First Name Khris Referring Provider Last Name Marcel Referring Provider Specialty Internal Nh hiram Referred Organization Unknown Facility Referred Provider Serene Tidwell Referred Provider Specialty Pulmonary Di seases Referral Priority Routine General Notes Brianna is being refer red for increasing dyspnea. She has childhood history of frequent respiratory illnesses but is not certain it was labeled as asthma. She has a 32 year hx of tobacco use, quitting in 2017. She continues w/ coughing, wheezing and dyspnea. She has 2-4 episodes of acute exacerbations during the year. She has not benefitted much from LABA/ICS and AMERICO. Trial of LABA/LAMA was less beneficial than the LABA/ICS. [facility] Other Summary Purpose Family History No Family History Records FoundNo Family History Records FoundNo Family History Records FoundNo Family History Records Found Advance Directives No Advanced Directives Records FoundNo Advanced Directives Records FoundNo Advanced Directives Records FoundNo Advanced Directives Records Found Chief Complaint and Reason for Visit Chief Complaint Screening Additional Source Comments INFORMATION SOURCE (unrecogn ized section and content) DATE CREATED AUTHOR 10/26/2021 [facility] DATE CREATED AUTHOR AUTHOR'S ORGANIZ ATION 06/23/2022 [facility] DATE CREATED AUTHOR AUTHOR'S ORGANIZ ATION 08/04/2022 [facility] DATE CREATED AUTHOR AUTHOR'S ORGANIZ ATION 04/03/2023 [facility] [employer] Care Teams (unrecognized sec tion and content) Team Status: Inactive Member Role Status Dates PHYSICIAN NO FAMILY Primary Care Provider Active Outreach Community Attending Provider Active Team Status: Active Member Role Status Dates PHYSICIAN NO FAMILY Primary Care Provider Active Goals (unrecognized section and content) Goals may be documented in a n alternate sectionNo InformationNo InformationNo InformationNo InformationNo InformationNo InformationNo InformationNo InformationNo InformationNo Information REASON FOR VISIT (unrecogniz ed section and content) Respiratory/ [id number] possible sinus infectionPrescriptionPrescriptions/ReferralMammogram OrderERRORLab ResultsNo InformationrefillNo Information FOR RECORDS PERTAINING TO PATIENTS WHO ARE OR HAVE BEEN ENROLLED IN A CHEMICAL DEPENDENCY/SUBSTANCEABUSE PROGRAM, SOME INFORMATION MAY BE OMITTED. This clinical summary was aggregated from multiple sources. Caution should be exercised in using it in the provision of clinical care. This summary normalizes information from multiple sources, and as a consequence, information in this document may materially change the coding, format and clinical context of patient data. In addition, data may be omitted in some cases. CLINICAL DECISIONS SHOULD BE BASED ON THE PRIMARY CLINICAL RECORDS. [employer] [facility]. provides no warranty or guarantee of the accuracy or completeness of information in this document.
== END 2023-11-19 15:05 | disposition home or self-care (01) ==
LOC: MAMMO 15:04
PROVIDERS: PCP Internal Medicine; Visit Provider Internal Medicine
DX: Z12.31 Encounter for screening mammogram for malignant neoplasm of breast (principal); Z80.3 Family history of malignant neoplasm of breast
CPT/HCPCS: 77063; 77067

== ENCOUNTER 2024-04-17 12:47 | Outpatient (OUT) | payer BC, SELFPAY ==
--- OUTSIDE RECORDS SUMMARY | 2024-04-17 12:51 | XMS_ITS | CCD ---
Author Organization [facility] Care Team Providers Care Unarmed Security Guard Name Role Phone MARCEL, DR CHI Primary Care Unavailable MARCEL, DR CHI Admitting Unavailable BALL, DR CHI Attending Unavailable MARCEL, DR CHI Primary Care Unavailable SAMIR THOMAS Attending Unavailable SAMIR THOMAS Consulting Unavailable SAMIR THOMAS Admitting Unavailable WILLIAM, SAMIR CHOWDARY Attending Unavailable WILLIAM, SAMIR CHOWDARY Consulting Unavailable SAMIR THOMSA Admitting Unavailable MARCEL, DR CHI Primary Care Unavailable MARCEL, DR CHI Primary Care Unavailable MARCEL, DR CHI Admitting Unavailable MARCEL, DR CHI Attending Unavailable MARCEL, DR CHI Consulting Unavailable MADHAV, DR SANDOR Green Consulting Unavailable NO FAMILY, [...] nurse or physicia Propensity to adverse reactions Comment:Done [facility] Other (2 sources) Allergies Reconciled Propensity to adverse reactions Unknown [facility] Other Medications Current Medications Medication Drug Class(es) Dates Sig (Normalized) Sig (Original) [id number] 200 actuat albuterol 0.09 mg/actuat metered dose [...] HCl Not -Taking/PRN traMADol HCl Not -Taking Problems Active Problems Problem Classification Problem Date [...] Long-term current use of inhaled steroid; Translations: [assisted (current) use of inhaled steroids] Episodic Other [...] elsewhere and of unspecified site] Onset: 7 Results Test Name Value Interpretation Reference Range Facility [facility] echo screening 022 [facility] echo screening [facility] Main [place] [id number] Echocardiogram Signed Patient: Brianna Rowland MR#: [id number] 6 : 1965 Acct:[id number] Age/Sex: 55 / F ADM Date: 10/28/21 [...] Signed By: Sherman Barrett MD 10/30/21 1003 [facility] CBC AUTO DIFFon 07-28-2021 BASO # 0.1 103/ul Normal 0.0-0.1 [facility] Comment on above: Performed By: #### C BC #### [facility] [address] [place] [address] Dr. Breezy Carranza Basophils/100 WBC (Bld) 0.7 % Normal 0.2-2.0 [facility] Comment on above: Performed By: #### C BC #### [facility] [address] [place] [address] Dr. Breezy Carranza EO # 0.3 103/ul Normal 0.0-0.7 [facility] Comment on above: Performed By: #### C BC #### [facility] [address] [place] [address] Dr. Breezy Carranza Eosinophils/100 WBC (Bld) 3.1 % Normal 0.9-7.0 [facility] Comment on above: Performed By: #### C BC #### [facility] [address] [place] [address] Dr. Breezy Carranza Erythrocyte distribution width (RBC) [Ratio] 13.0 % Normal 11.0-15.0 [facility] Comment on above: Performed By: #### C BC #### [facility] [address] [place] [address] Dr. Breezy Carranza Hematocrit (Bld) [Volume fraction] 39.9 % Normal 36.0-48.0 [facility] Comment on above: Performed By: #### C BC #### [facility] [address] [place] [address] Dr. Breezy Carrnaza Hemoglobin (Bld) [Mass/Vol] 13.1 g/dL Normal 12.0-16.0 [facility] Comment on above: Performed By: #### C BC #### [facility] [address] [place] [address] Dr. Breezy Carranza IG # 0.08 10e3/ul Critically high 0.00-0.03 [facility] Comment on above: Performed By: #### C BC #### [facility] [address] [place] [address] Dr. Brezey Carranza IG % 0.9 % Critically high 0.0-0.5 [facility] Comment on above: Performed By: #### C BC #### [facility] [address] [place] [address] Dr. Breezy Carranza LYMPH # 1.8 103/ul Normal 1.2-3.8 [facility] Comment on above: Performed By: #### C BC #### [facility] [address] [place] [address] Dr. Breezy Carranza Lymphocytes/100 WBC (Bld) 20.7 % Normal 20.5-60.0 [facility] Comment on above: Performed By: #### C BC #### [facility] [address] [place] [address] Dr. Breezy Carranza MANUAL DIFF REQ NO Normal [facility] Comment on above: Performed By: #### C BC #### [facility] [address] [place] [address] Dr. Breezy Carranza MCH (RBC) [Entitic mass] 33.1 pg Normal 26.7-34.0 [facility] Comment on above: Performed By: #### C BC #### [facility] [address] [place] [address] Dr. Breezy Carranza MCHC (RBC) [Mass/Vol] 32.8 g/dL Normal 29.9-35.2 [facility] Comment on above: Performed By: #### C BC #### [facility] [address] [address] [address] Breezy Carranza MCV (RBC) [Entitic vol] 100.8 fL Critically high 81.0-99.0 [facility] Comment on above: Performed By: #### C BC #### [facility] [address] [address] [address] Breezy Carranza MONO # 0.6 103/ul Normal 0.3-0.8 [facility] Comment on above: Performed By: #### C BC #### [facility] [address] [address] [address] Breezy Carranza Monocytes/100 WBC (Bld) 7.2 % Normal 1.7-12.0 [facility] Comment on above: Performed By: #### C BC #### [facility] [address] [address] [address] Breezy Carranza NEUT # 5.7 103/ul Normal 1.4-6.5 [facility] Comment on above: Performed By: #### C BC #### [facility] [address] [address] [address] Breezy Carranza Neutrophils/100 WBC (Bld) 67.4 % Normal 43.0-75.0 [facility] Comment on above: Performed By: #### C BC #### [facility] [address] [address] [address] Breezy Carranza Platelet mean volume (Bld) [Entitic vol] 9.9 fL Normal 9.5-13.5 [facility] Comment on above: Performed By: #### C BC #### [facility] [address] [address] [address] Breezy Carranza PLT 204 103/ul Normal 150-450 [facility] Comment on above: Performed By: #### C BC #### [facility] [address] [address] [address] Breezy Carranza RBC 3.96 106/ul Critically low 4.20-5.40 [facility] Comment on above: Performed By: #### C BC #### [facility] [address] [address] [address] Breezy Carranza WBC 8.5 103/ul Normal 4.0-11.0 [facility] Comment on above: Performed By: #### C BC #### [facility] [address] [address] [address] Breezy Carranza GLYCOHEMOGLOBIN A1Con 2021 ADA RECOMMENDATION ADA THERAPEUTIC TARGET 6.0 - 7.0 ACTION SUGGESTED > 7.0 Normal [facility] Comment on above: Performed By: #### A 1C #### [facility] [address] [address] [address] Breezy Carranza Glucose [Mass/Vol] 82 mg/dL Normal [facility] Comment on above: Performed By: #### A 1C #### [facility] [address] [address] [address] Breezy Carranza HbA1c (Bld) [Mass fraction] 4.5 % Normal <=6.0 [facility] Comment on above: Performed By: #### A 1C #### [facility] [address] [place] [address] Dr. Breezy Carranza LIPID PROFILEon 07-28-2021 CHOL-HDL RATIO NORM SEE BELOW Normal [facility] Comment on above: Result Comment: 3.3 - 4.4 LOW RISK 4.4 - 7.1 AVERAGE RISK 7.1 - 11.0 MODERATE RISK >11.0 HIGH RISK Performed By: #### C MP, LIPID, TSH #### [facility] [address] [address] [address] Breezy Carranza Cholesterol [Mass/Vol] 249 mg/dL Critically high <=200 [facility] Comment on above: Performed By: #### C MP, LIPID, TSH #### [facility] [address] [address] [address] Breezy Carranza Cholesterol in HDL [Mass/Vol] 117 mg/dL Normal [facility] Comment on above: Performed By: #### C MP, LIPID, TSH #### [facility] [address] [address] [address] Breezy Carranza Cholesterol in LDL [Mass/Vol] 123.2 mg/dL Normal [facility] Comment on above: Performed By: #### C MP, LIPID, TSH #### [facility] [address] [address] [address] Breezy Carranza Cholesterol.total/Cho lesterol in HDL [Mass ratio] 2.1 {ratio} Normal [facility] Comment on above: Performed By: #### C MP, LIPID, TSH #### [facility] [address] [address] [address] Breezy Carranza HDL NORMAL > or = 60 mg/dl - LOW CARDIOVASCULAR RISK <40 mg/dl - HIGH CARDIOVASCULAR RISK Normal [facility] Comment on above: Performed By: #### C MP, LIPID, TSH #### [facility] [address] [address] [address] Breezy Carranza LDL CALC NORMAL SEE BELOW Normal [facility] Comment on above: Result Comment: <100 mg/dl OPTIMAL 100 - 129 mg/dl NEAR OR ABOVE OPTIMAL 130 - 159 mg/dl BORDERLINE HIGH 160 - 189 mg/dl HIGH >190 mg/dl VERY HIGH Performed By: #### C MP, LIPID, TSH #### [facility] [address] [address] [address] Breezy Carranza Triglyceride [Mass/Vol] 44 mg/dL Normal <=150 [facility] Comment on above: Performed By: #### C MP, LIPID, TSH #### [facility] [address] [address] [address] Breezy Carranza VLDL CALC 8.8 mg/dL Normal [facility] Comment on above: Performed By: #### C MP, LIPID, TSH #### [facility] [address] [address] [address] Breezy Carranza MG MAMM SCREEN 3D RAQUEL CADon 07-28-2021 MG MAMM SCREEN 3D RAQUEL CAD Patient: BRIANNA ROWLAND Exam Date: 07/28/2021 : 1965 Gender:F Ordering : DR KHRIS ROD D.O. Admission #: [id number] Family : Order #: [id number] CLICK HERE TO VIEW EXAM RADIOLOGY REPORT [...] Treatments None Family Cancers None LOCATION: The [facility] BREAST COMPOSITION: Extremely dense, which lowers [...] Salazar M.D. on 07/28/2021 at 13:27 Normal [facility] PROF 14(COMP METB)on 022 Albumin [Mass/Vol] 3.8 g/dL Normal 3.5-5.0 [facility] Comment on above: Performed By: #### C MP, LIPID, TSH #### [facility] [address] [address] [address] Breezy Carranza Albumin/Globulin [Mass ratio] 1.1 {ratio} Normal [facility] Comment on above: Performed By: #### C MP, LIPID, TSH #### [facility] [address] [address] [address] Breezy Carranaz ALP [Catalytic activity/Vol] 96 U/L Normal 38-126 [facility] Comment on above: Performed By: #### C MP, LIPID, TSH #### [facility] [address] [address] [address] Breezy Carranza ALT [Catalytic activity/Vol] 45 U/L Normal 9-52 [facility] Comment on above: Performed By: #### C MP, LIPID, TSH #### [facility] [address] [address] [address] Breezy Carranza Anion gap [Moles/Vol] 15.6 mmol/L Normal [facility] Comment on above: Performed By: #### C MP, LIPID, TSH #### [facility] [address] [address] [address] Breezy Carranza AST [Catalytic activity/Vol] 27 U/L Normal 14-36 [facility] Comment on above: Performed By: #### C MP, LIPID, TSH #### [facility] [address] [place] [address] Dr. Breezy Carranza Bilirubin [Mass/Vol] 0.5 mg/dL Normal 0.2-1.3 [facility] Comment on above: Performed By: #### C MP, LIPID, TSH #### [facility] [address] [address] [address] Breezy Carranza Calcium [Mass/Vol] 8.6 mg/dL Normal 8.4-10.2 [facility] Comment on above: Performed By: #### C MP, LIPID, TSH #### [facility] [address] [place] [address] Dr. Breezy Carranza Chloride [Moles/Vol] 100 mmol/L Normal 98-107 [facility] Comment on above: Performed By: #### C MP, LIPID, TSH #### [facility] [address] [place] [address] Dr. Breezy Carranza CO2 [Moles/Vol] 25.6 mmol/L Normal 22.0-30.0 The [facility] Comment on above: Performed By: #### C MP, LIPID, TSH #### [facility] [address] [place] [address] Dr. Breezy Carranza Creatinine [Mass/Vol] 0.66 mg/dL Normal 0.52-1.04 [facility] Comment on above: Performed By: #### C MP, LIPID, TSH #### [facility] [address] [place] [address] Dr. Breezy Carranza EGFR-AF TUVALUAN >60 Normal >=60 [facility] Comment on above: Performed By: #### C MP, LIPID, TSH #### [facility] [address] [place] [address] Dr. Breezy Carranza EGFR-NON AF TUVALUAN >60 Normal >=60 [facility] Comment on above: Performed By: #### C MP, LIPID, TSH #### [facility] [address] [address] [address] Breezy Carranza Globulin (S) [Mass/Vol] 3.5 g/dL Normal [facility] Comment on above: Performed By: #### C MP, LIPID, TSH #### [facility] [address] [address] [address] Breezy Carranza Glucose [Mass/Vol] 72 mg/dL Critically low 74-106 [facility] Comment on above: Performed By: #### C MP, LIPID, TSH #### [facility] [address] [place] [address] Dr. Breezy Carranza Potassium [Moles/Vol] 4.2 mmol/L Normal 3.4-5.0 [facility] Comment on above: Performed By: #### C MP, LIPID, TSH #### [facility] [address] [place] [address] Dr. Breezy Carranza Protein [Mass/Vol] 7.3 g/dL Normal 6.1-8.2 [facility] Comment on above: Performed By: #### C MP, LIPID, TSH #### [facility] [address] [place] [address] Dr. Breezy Carranza Sodium [Moles/Vol] 137 mmol/L Normal 137-145 [facility] Comment on above: Performed By: #### C MP, LIPID, TSH #### [facility] [address] [place] [address] Dr. Breezy Carranza Urea nitrogen [Mass/Vol] 9.0 mg/dL Normal 7.0-17.0 [facility] Comment on above: Performed By: #### C MP, LIPID, TSH #### [facility] [address] [place] [address] Dr. Breezy Carranza Urea nitrogen/Creatinine [Mass ratio] 13.6 mg/mg Normal [facility] Comment on above: Performed By: #### C MP, LIPID, TSH #### [facility] [address] [place] [address] Dr. Breezy Carranza TSHon 07-28-2021 TSH 1.967 uIU/mL Normal 0.470-4.680 [facility] Comment on above: Performed By: #### C MP, LIPID, TSH #### [facility] [address] [address] [address] Breezy Carranza TSH RANGE SEE BELOW Normal [facility] Comment on above: Result Comment: <0.3 4 UIU/ml HYPERTHYROID 0.34-5.60 UIU/ml EUTHYROID >5.60 UIU/ml HYPOTHYROID Performed By: #### C MP, LIPID, TSH #### [facility] [address] [address] [address] Breezy Carranza Vital Signs Date Time Vital Sign Value Performing Clinician Facility 10-24-2022 14:30-0400 Body height 165.1 cm Khris Ball Other [facility] Other 10-24-2022 14:30-0400 Body mass index (BMI) [Ratio] 22.16 kg/m2 Khris Ball Other [facility] Other 10-24-2022 14:30-0400 Body weight 60.42 kg Khris Ball Other [facility] Other 10-24-2022 14:30-0400 Diastolic blood pressure 76 mm[Hg] Khris Ball Other [facility] Other 10-24-2022 14:30-0400 Respiratory rate 12 /min Khris Ball Other [facility] Other 10-24-2022 14:30-0400 Systolic blood pressure 117 mm[Hg] Khris Ball Other [facility] Other Encounters Encounter Date Encounter Type Care Provider Facility Start: 07-15-2023 End: 07-15-2023 ambulatory Khris Ball Other [facility] Other Start: 07-15-2023 Telephone encounter Khris Rod [facility] Start: 04-02-2023 End: 04-02-2023 ambulatory SERENE TIDWELL Not Available Start: 03-12-2023 End: 03-12-2023 ambulatory Khris Rod Other [facility] Other Start: 03-12-2023 Telephone encounter Khris Rod [facility] Start: 11-13-2022 End: 11-13-2022 ambulatory Khris Rod Other [facility] Other Start: 11-13-2022 Telephone encounter Khris Rod [facility] Start: 11-01-2022 End: 11-01-2022 ambulatory Khris Rod Other [facility] Other Start: 11-01-2022 Telephone encounter Khris Rod [facility] Start: 10-24-2022 End: 10-24-2022 ambulatory Khris Rod Other [facility] Other Start: 10-24-2022 Encounter for genera l adult medical examination without abnormal findings Khirs Rod [facility] Start: 10-24-2022 Periodic preventive med est patient 40-64yrs Khris Rod [facility] Start: 08-03-2022 Emergency department patient visit [facility] Facility:[facility] Start: 08-03-2022 End: 08-03-2022 ambulatory Khris Rod Other [facility] Other Start: 08-03-2022 Telephone encounter Khris Rod [facility] Start: 08-02-2022 End: 08-02-2022 ambulatory Khris Marcel Other [facility] Other Start: 08-02-2022 Office outpatient vi sit 15 minutes Khris Rod [facility] Start: 07-16-2022 End: 07-16-2022 ambulatory Khris Ball Other [facility] Other Start: 07-16-2022 Office outpatient vi sit 15 minutes Khris Rod [facility] Start: 02-12-2022 Gynecological examination normal Khris Rod Other [facility] Other Start: 10-31-[address] KHRIS ROD Facili ty:[facility] Start: 10-28-2021 End: 10-28-2021 ambulatory Outreach Community Facility:[facility] Start: 10-28-2021 End: 10-28-2021 Departed Referred PHYSICIAN NO FAMILY [facility] Start: 07-31-2021 Encounter for genera l adult medical examination without abnormal findings DR KHRIS ROD [facility] Start: 07-28-2021 End: 07-29-[address] KHRIS ROD Facility:[facility] Start: 07-28-2021 End: 07-29-2021 Encounter for general adult medical examination without abnormal findings DR KHRIS ROD Facility:[facility] Start: 07-04-2021 Adult health examination Orion Rod Other [facility] Other Start: 04-18-2021 End: 04-19-[address] KHRIS ROD Facility:[facility] Start: 03-15-2021 End: 03-16-2021 ambulatory SAMIR THOMAS Facility:[facility] Procedures Date Procedure Procedure Detail Performing Clinician Start: 02-03-2015 Screening mammography B vickey Rod Other Start: 12-16-2013 General examination of patient Khris Rod Other History and physical examination, sports participation Khris Rod Other Screening for malign ant neoplasm of breast Khris Rod Other Screening for malign ant neoplasm of colon Khris Rod Other Payers Date Payer Category Payer [facility] [id number] 2019 Unknown [id number] 1965 Unknown [id number] [id number] 1965 Unknown [id number] [id number] [id number] 1965 Unknown [id number] 1959 Self-pay Unknown [id number] [id number] [id number] Unknown [id number] [id number] [id number] Social History Date Type Detail Facility Tobacco smoking status NHIS Unknown if ever smoked [facility] Work Phone: Start: 1965 Sex Assigned At Female F [facility] Sex Assigned At Sex Assigned At Bir th [facility] Other Clinical Notes 07-16-2022 to 03-12-2023 Note Date & Type Note Facility 03-12-2023 Evaluation note Encounter Date Diagnosis Assessment Notes Feb, ANGELINA (generalized anxiety disorder) (ICD-10 - F41.1) [facility] Other 06-27-2023 Evaluation note* Encounter Date Diagnosis Assessment Notes Treatment Notes Treatment Clinical Notes Oct, Mild persistent asthma without complication (ICD-10 - J45.30) [facility] Other 06-15-2023 Evaluation note* Encounter Date Diagnosis Assessment Notes Treatment Notes Treatment Clinical Notes Oct, Screening mammogram for breast cancer (ICD-10 - Z12.31) [facility] [employer] Other 06-07-2023 Evaluation note* Encounter Date Diagnosis [...] rhinitis due to pollen (ICD-10 - J30.1) Peewee Malcolm Referral to [employer]ing [employer] to determine contribution of allergies to her respiratory complaints. Oct, Mild persistent asthma without complication (ICD-10 - J45.30) Continue LABA/ICS and AMERICO. Oct, Cigarette nicotine dependence in remission (ICD-10 - F17.211) Continue abstinence [facility] Other 03-17-2023 Evaluation note* Encounter Date Diagnosis Assessment Notes Treatment Notes Treatment Clinical Notes Jul, Chronic obstructive pulmonary disease with (acute) exacerbation (ICD-10 - J44.1) [facility] Other 03-16-2023 Evaluation note* Encounter Date Diagnosis [...] (ICD-10 - J44.1) Increase use of AMERICO [facility] Other 02-27-2023 Evaluation note* Encounter Date Diagnosis [...] Other Healthy diet an d keep active. [facility] Other Evaluation noteNo assessment information available [facility] Work Phone: Evaluation [facility]No [facility] [employer] Other History general Narrative - Reported* Type Description Date Medical History ANGELINA (generalized anxiety disorde r) Surgical History C SECTIONS X2 [facility] Other History general Narrative - Reported* Type Description Date Medical History ANGELINA (generalized anxiety disorde r) Surgical History C SECTIONS X2 Hospitalization History SEE SURGICAL HX [facility] Other Reason for referral (narrative)* Reason Referral for allergy testing. Diagnosis 1 Seasonal allergic rh initis due to pollen (J30.1) Diagnosis 2 Mild persistent asth ma without complication (J45.30) Referral Organization [facility] Referring Provider First Name Khris Referring Provider Last Name Marcel Referring Provider Specialty Internal Tn hiram Referred Organization Unknown Facility Referred Provider [...] d ependence in remission (F17.211) Referral Organization [facility] Referring Provider First Name Khris Referring Provider Last Name Marcel Referring Provider Specialty Internal Tn hiram Referred Organization Unknown Facility Referred Provider [...] LABA/LAMA was less beneficial than the LABA/ICS. [facility] Other Summary Purpose Family History No Family [...] content) DATE CREATED AUTHOR 10/26/2021 [facility] DATE CREATED AUTHOR AUTHOR'S ORGANIZ ATION 06/23/2022 [facility] DATE CREATED AUTHOR AUTHOR'S ORGANIZ ATION 08/04/2022 [facility] hospital DATE CREATED AUTHOR AUTHOR'S ORGANIZ ATION 04/03/2023 [facility] EPIC Care Teams (unrecognized [...] VISIT (unrecogniz ed section and content) Respiratory/ [id number] possible sinus infectionPrescriptionPrescriptions/ReferralMammogram OrderERRORLab ResultsNo InformationrefillNo Information [...] BE BASED ON THE PRIMARY CLINICAL RECORDS. [employer] [facility]. provides no warranty or guarantee of the accuracy or completeness of information in this document.
[2024-04-17 13:04] LABS: Basophils Absolute Auto 0.1 10^3/uL (0.0-0.1); Basophils Percent Auto 0.9 % (0.2-2.0); Eosinophils Absolute Auto 0.4 10^3/uL (0.0-0.7); Hematocrit 39.3 % (36.0-48.0); Hemoglobin 13.1 g/dL (12.0-16.0); Immature Granulocytes Abs Auto 0.07 10^3/uL (0.00-0.03); Immature Granulocytes Pct Auto 0.7 % (0.0-0.5); Lymphocytes Absolute Auto 1.7 10^3/uL (1.2-3.8); Lymphocytes Percent Auto 17.1 % (20.5-60.0); Mean Corpuscular HGB Conc 33.3 g/dL (29.9-35.2); Mean Corpuscular Hemoglobin 32.7 pg (26.7-34.0); Mean Platelet Volume 9.5 fL (9.5-13.5); Monocytes Absolute Auto 0.7 10^3/uL (0.3-0.8); Monocytes Percent Auto 7.4 % (1.7-12.0); Neutrophils Absolute Auto 6.9 10^3/uL (1.4-6.5); Neutrophils Percent Auto 69.9 % (43.0-75.0); Platelet Count 281 10^3/uL (150-450); Red Blood Count 4.01 10^6/uL (4.20-5.40); Red Cell Distribution Width 11.9 % (11.0-15.0); White Blood Count 9.8 10^3/uL (4.0-11.0)
[2024-04-17 13:45] LABS: Alanine Aminotransferase 24 U/L (14-59); Albumin Globulin Ratio 1.1; Albumin Level 3.4 g/dL (3.4-5.0); Alkaline Phosphatase 104 U/L (46-116); Anion Gap 12.3; Aspartate Amino Transferase 18 U/L (15-37); BUN Creatinine Ratio 9.6; Bilirubin Total 0.4 mg/dL (0.2-1.0); Carbon Dioxide 29.8 mmol/L (21.0-32.0); Chloride 105 mmol/L (98-107); Estimated GFR (African America >60 (>=60 mL/min/1.73m^2); Estimated GFR (Non-African Ame >60 (>=60 mL/min/1.73m^2); Glucose 87 mg/dL (74-106); Potassium 4.1 mmol/L (3.5-5.1); Sodium 143 mmol/L (136-145); Total Protein 6.4 g/dL (6.4-8.2)
== END 2024-04-17 12:48 | disposition home or self-care (01) ==
LOC: LAB 12:49
PROVIDERS: PCP Internal Medicine; Visit Provider Internal Medicine
DX: R10.9 Unspecified abdominal pain (principal); N17.9 Acute kidney failure, unspecified; R74.8 Abnormal levels of other serum enzymes
CPT/HCPCS: 36415; 80053; 83690; 85025

== ENCOUNTER 2025-02-16 12:52 | Outpatient (RCR) | payer BC, SELFPAY | END 2025-02-16 23:59 | disposition home or self-care (01) | LOC: VACCLI 12:52 | PROVIDERS: PCP Internal Medicine; Visit Provider Internal Medicine | DX: Z23 Encounter for immunization (principal) | CPT/HCPCS: 90636 ==